=== PATIENT | female | born 1975 | race Caucasian/White ===

== ENCOUNTER 2019-05-01 01:54 | Emergency (ER) | payer SELFPAY ==
[2019-05-01 01:58] VITALS: BP 121/85; PULSE 110; RESP 18; TEMP 36.8; O2SAT 100
--- NOTE | 2019-05-01 03:26 | ED.GENADULT ---
HPI - General Adult General Chief complaint: Wound/Laceration Stated complaint: toe wound? Time Seen by Provider: 05/01/19 03:02 Source: patient Mode of arrival: ambulatory Limitations: no limitations History of Present Illness HPI narrative: Patient presented for evaluation of left fourth toe wound that has been present over the past week. Patient denies stepping on any foreign body or injury to the foot. She states that she noticed some burning in that location, and then noticed a sore which has now developed. No purulent drainage. She is noticed some dry skin around the area. No erythema or warmth. Patient denies any fever or chills. No trauma to the foot. She is up-to-date on her immunizations. She reports dull, aching pain that is worsened with walking. No ankle pain. She denies any numbness. She has no history of diabetes or skin infection. Related Data Allergies Allergy/AdvReac Type Severity Reaction Status Date / Time No Known Allergies Allergy Unverified 08/14/18 13:53 Review of Systems Review of Systems: Narrative: CONSTITUTIONAL: Denies fever, chills, or sweats. CARDIOVASCULAR: Denies chest pain RESPIRATORY: Denies cough or dyspnea. GASTROINTESTINAL: Denies nausea or vomiting SKIN: Denies rash or itching. MUSCULOSKELETAL: Denies joint pain PMFSH Social History Social History (Updated 05/01/19 @ 03:41 by Jeannine Pappas MD) Smoking status: Current every day smoker Tobacco type: cigarettes Second hand tobacco smoke exposure: No Alcohol intake: current Substance use: never Exam Narrative: Exam Narrative: GENERAL: Well-appearing, well-nourished, and in no acute distress. HEAD: Normocephalic, atraumatic. EYES: PERRLA and EOMI. ENT: Nares clear, no rhinorrhea or epistaxis. Mucous membranes moist. NECK: Supple. CHEST: Clear to auscultation. No respiratory distress. HEART: Regular rate and rhythm. No murmur heard. Normal peripheral pulses. ABDOMEN: Soft, nontender, nondistended, normal active bowel sounds. EXTREMITIES: Normal range of motion. No edema. SKIN: Warm, dry, no laceration. Left fourth toe skin breakdown, no erythema, no purulent discharge, there is tenderness present. No warmth. No blister or abscess. No necrosis. DP pulses 2+. Intact sensation distally. NEURO: No focal deficits. Alert and oriented x3 Course Course Emergency Course: Patient with evidence of dry skin and no purulent discharge, but possible very early cellulitis. Patient will require some debridement of the skin breakdown. This does not need to be done emergently. No sign of tracking, no crepitus, no forefoot pain or ankle pain. No sign of tracking, not consistent with osteomyelitis. No systemic symptoms. We will set patient up with podiatry, and she will be started on antibiotics. Advised had a dressing keep the wound clean and dry. Patient given shoe to walk-in for comfort, discharged home in stable condition. Vital Signs Vital signs: Vital Signs Temperature 36.8 C 05/01/19 01:58 Pulse Rate 110 H 05/01/19 01:58 Respiratory Rate 18 05/01/19 01:58 Blood Pressure 121/85 05/01/19 01:58 Pulse Oximetry 100 05/01/19 01:58 Temperature 36.8 C 05/01/19 01:58 Pulse Rate 110 H 05/01/19 01:58 Respiratory Rate 18 05/01/19 01:58 Blood Pressure 121/85 05/01/19 01:58 Pulse Oximetry 100 05/01/19 01:58 Medical Decision Making Vital Signs Vital Signs: Vital Signs Temperature 36.8 C 05/01/19 01:58 Pulse Rate 110 H 05/01/19 01:58 Respiratory Rate 18 05/01/19 01:58 Blood Pressure 121/85 05/01/19 01:58 Pulse Oximetry 100 05/01/19 01:58 Temperature 36.8 C 05/01/19 01:58 Pulse Rate 110 H 05/01/19 01:58 Respiratory Rate 18 05/01/19 01:58 Blood Pressure 121/85 05/01/19 01:58 Pulse Oximetry 100 05/01/19 01:58 Discharge Plan Discharge Clinical Impression: Open toe wound Qualifiers: Encounter type: initial encounter Qualified Code(s): S91.10
== END 2019-05-01 04:25 | disposition home or self-care (01) ==
PROVIDERS: Emergency Provider Emergency Medicine
DX: S91.105A Unspecified open wound of left lesser toe(s) without damage to nail, initial encounter (principal); F17.210 Nicotine dependence, cigarettes, uncomplicated; X58.XXXA Exposure to other specified factors, initial encounter
CPT/HCPCS: 99283

== ENCOUNTER 2020-12-29 03:05 | Emergency (ER) | payer OTHER, SELFPAY ==
--- NOTE | ~2020-12-29 | US_ITS ---
US abdomen limited DATE: 12/29/2020 07:46 INDICATION: Abdominal pain TECHNIQUE: Real-time imaging of liver, pancreas, gallbladder areas COMPARISON: 01/08/2021 CT abdomen pelvis noncontrast examination FINDINGS: Normal hepatopedal portal venous flow direction. No hepatic or pancreatic space-occupying m ass lesion. Approximately 1.4 cm stone is noted in the gallbladder fundus. There is mild thickening of the gallbl adder wall. Negative sonographic Sage's sign. Common bile duct measures 4.1 mm, within normal limits. IMPRESSION: Cholelithiasis and mild gallbladder wall thickening; negative sonographic Sage's sign Reviewed, dictated and finalized at [facility]. Reviewed, dictated and finalized at [facility]. IMPRESSION: Cholelithiasis and mild gallbladder wall thickening; negative sonog raphic Sage's sign
--- NOTE | ~2020-12-29 | CT_ITS ---
EXAMINATION: CT abdomen pelvis wo con DATE: 12/29/2020 05:32 INDICATION: Right-sided abdominal and flank pain. History of urinary tract infections. TECHNIQUE: Computed tomography (CT) of the abdomen and pelvis was performed without intravenous contr ast. Automated exposure control and iterative reconstruction technique were employed. Exam dose: 567 .59 mGy-cm total exam DLP. COMPARISON: None. FINDINGS: There is mild atelectasis in the lower aspect of the middle lobe and right lower lobe. Left lower lung taylor are clear. Normal heart size. No pericardial or pleural effusion. There is at least one 12 mm gallstone in the gallbladder fundus, possibly in a phrygian cap. Gallbladder wall thickening is suggested. No hepatic space-occupying mass lesion or bile duct or pancreatic duct dilatation is detected. No de creatic mass lesion or calcification. Normal splenic size. Normal morphology of the adrenal glands. Suggestion of a pinpoint nonobstructing left renal calculus. No renal mass lesion or urinary tract ca lculus or hydroureteronephrosis is evident otherwise on this limited noncontrast examination. The uri nary bladder is largely evacuated and not optimally evaluated. Uterus and adnexal areas are unremarka ble. No abdominal aortic aneurysm. No intraperitoneal or retroperitoneal or pelvic mass lesion or adenopat hy or ascites. Normal appendix. No bowel obstruction, bowel wall thickening, pneumatosis or intraperitoneal free air . Small fat-containing umbilical hernia. Degenerative changes of the thoracic and lumbar spine including severe degenerative disc disease at L 4-5. No suspicious osteolytic or osteoblastic lesions are noted. IMPRESSION: Cholelithiasis; borderline gallbladder wall thickening Normal appendix possible pinpoint nonobstructing left renal calculus Mild atelectasis in the right lo wer lung Reviewed, dictated and finalized at [facility]. Reviewed, dictated and finalized at [facility]. IMPRESSION: Cholelithiasis; borderline gallbladder wall thickening Normal appendix possible pinpoint nonobstructing left renal calculus Mild atele ctasis in the right lower lung
[2020-12-29 03:12] VITALS: PULSE 85; RESP 18; TEMP 36.1; O2SAT 100
[2020-12-29] MEDS: ONDANSETRON INJ 4 MG/2 ML VIAL IV PUSH (03:42)
[2020-12-29] MEDS: SODIUM CHLORIDE 0.9% IV 1,000 ML 999 ML IV CONT (03:42)
[2020-12-29] MEDS: MORPHINE SULFATE (*CRX) 4 MG/ML INJ IV PUSH ×2 (03:43→07:08)
--- NOTE | 2020-12-29 04:02 | ED.GENADULT ---
HPI - General Adult General Chief complaint: Abdominal Pain <Hong Singh MD - Last Filed: 12/29/20 04:03> Stated complaint: abd pain <Hong Singh MD - Last Filed: 12/29/20 04:03> Time Seen by Provider: 12/29/20 03:26 <Hong Singh MD - Last Filed: 12/29/20 04:03> History of Present Illness HPI narrative: Patient is a 45-year-old female presents the emergency department with chief complaint of left flank pain. Patient states the pain began suddenly reports that by nothing is worsened with movement. Patient denies fever denies chills reports has had history of UTIs. Patient denies history of kidney stones. <Hong Singh MD - Last Filed: 12/29/20 04:03> Related Data Allergies/adverse reactions: Allergies Allergy/AdvReac Type Severity Reaction Status Date / Time No Known Allergies Allergy Verified 12/29/20 03:20 <Hong Singh MD - Last Filed: 12/29/20 04:03> Review of Systems Review of Systems: A 10 system review of systems was completed on the patient and is negative except for what is stated in the HPI. Nursing and ancillary documentation was reviewed. <Hong Singh MD - Last Filed: 12/29/20 04:03> PMFSH Social History Social History: Social History Smoking status: Current every day smoker Tobacco type: cigarettes Second hand tobacco smoke exposure: No Alcohol intake: current Substance use: never <Hong Singh MD - Last Filed: 12/29/20 04:03> Exam Narrative: GENERAL: Well-appearing, well-nourished, and in moderate pain distress. HEAD: Normocephalic, atraumatic. EYES: PERRLA and EOMI. ENT: Nares clear, no rhinorrhea or epistaxis. Mucous membranes moist. NECK: Supple. CHEST: Clear to auscultation. No respiratory distress. HEART: Regular rate and rhythm. No murmur heard. Normal peripheral pulses. ABDOMEN: Soft, nontender, nondistended, normal active bowel sounds. EXTREMITIES: Normal range of motion. No edema. SKIN: Warm, dry, no rash. NEURO: No focal deficits. Alert and oriented x3. PSYCH: Normal mood and affect. <Hong Singh MD - Last Filed: 12/29/20 04:03> Course Vital Signs Vital signs: Vital Signs Temperature 36.1 C L 12/29/20 03:12 Pulse Rate 85 12/29/20 03:12 Respiratory Rate 18 12/29/20 03:12 Pulse Oximetry 100 12/29/20 03:12 Temperature 36.1 C L 12/29/20 03:12 Pulse Rate 80 12/29/20 09:00 Respiratory Rate 16 12/29/20 09:00 Blood Pressure 101/72 12/29/20 09:00 Pulse Oximetry 98 12/29/20 09:00 <Hong Singh MD - Last Filed: 12/29/20 04:03> Vital Signs Temperature 36.1 C L 12/29/20 03:12 Pulse Rate 85 12/29/20 03:12 Respiratory Rate 18 12/29/20 03:12 Pulse Oximetry 100 12/29/20 03:12 Temperature 36.1 C L 12/29/20 03:12 Pulse Rate 80 12/29/20 09:00 Respiratory Rate 16 12/29/20 09:00 Blood Pressure 101/72 12/29/20 09:00 Pulse Oximetry 98 12/29/20 09:00 <José Haywood MD - Last Filed: 12/29/20 10:01> Medical Decision Making MDM Narrative Medical decision making narrative: Labs reviewed CT reviewed Ultrasound reviewed once it was resulted Patient was reexamined Effectively she has no right upper quadrant tenderness at all She does have some lumbar midline and paraspinous tenderness on the left side, and her symptoms are worse when she moves around or coughs She has a negative straight leg raise Advised her about the presence of a gallstone but I don't think that the cause of any of her symptoms, and that we'll treat her with some anti-inflammatories and muscle relaxers <José Haywood MD - Last Filed: 12/29/20 10:01> Vital Signs Vital Signs: Vital Signs Temperature 36.1 C L 12/29/20 03:12 Pulse Rate 85 12/29/20 03:12 Respiratory Rate 18 12/29/20 03:12 Pulse O
[2020-12-29 04:10] LABS: Basophils Absolute Auto 0.1 K/mm3 (0.0-0.1); Basophils Percent Auto 0.6 % (0.2-1.2); Eosinophils Absolute Auto 0.3 K/mm3 (0-0.3); Eosinophils Percent Auto 3.4 % (0-4.4); Hematocrit 37.2 % (37.0-47.0); Hemoglobin 12.3 g/dL (12.0-15.0); Immature Granulocyte Absolute 0.01 K/mm3 (0.00-0.031); Immature Granulocyte Percent A 0.1 % (0-0.5); Lymphocytes Absolute Auto 3.23 K/mm3 (0.9-3.2); Lymphocytes Percent Auto 40.3 % (18.3-44.2); Mean Corpuscular HGB Conc 33.1 g/dl (32-36); Mean Corpuscular Hemoglobin 32.4 pg (26-34); Mean Corpuscular Volume 97.9 fl (80-100); Mean Platelet Volume 9.8 fl (7.4-10.4); Monocytes Absolute Auto 0.5 K/mm3 (0.1-0.6); Monocytes Percent Auto 5.6 % (2.6-8.5); Platelet Count Result 314 k/mm3 (150-375); Red Cell Distribution Width 13.8 % (11.5-14.5)
[2020-12-29 04:22] LABS: Alanine Aminotransferase 18 U/L (4-35); Albumin Level 4.1 g/dL (3.5-5.1); Alkaline Phosphatase 60 U/L (38-126); Anion Gap 8 mmol/L (8-16); Aspartate Amino Transferase 27 U/L (14-36); Bilirubin,Total 0.1 mg/dL (0.2-1.3); Blood Urea Nitrogen 14 mg/dL (7-17); Calcium 9.5 mg/dL (8.4-10.2); Carbon Dioxide 26 mmol/L (22-30); Chloride 107 mmol/L (98-107); Estimated CRCL calculation 90 ml/min; Estimated Glomerular Filt Rate > 60; Glucose 120 mg/dL (65-110); Lipase 161 U/L (23-300); Potassium 3.3 mmol/L (3.4-5.0); Sodium 141 mmol/L (137-145)
[2020-12-29 05:31] VITALS: BP 105/73; PULSE 79; RESP 18; O2SAT 100
[2020-12-29 05:42] LABS: Add Urine Microscopic? YES; Appearance Urine Clear (Clear); Bilirubin Urine Negative (Negative); Blood Urine Negative (Negative); Color Urine Yellow (Yellow); Glucose Urine UA Negative (Negative); Ketones Urine Negative (Negative); Leukocyte Esterase Ur Negative LEU/UL (Negative); Mucus Urine Few /lpf; Nitrate Urine Negative (Negative); Protein Urine 1+ mg/dL (Negative); Squamous Epithelial Cell Urine Few /hpf (Few); WBC Urine 0-3 /hpf
[2020-12-29 05:43] LABS: Specific Grav Ur 1.031 (1.001-1.035)
[2020-12-29 08:30] VITALS: BP 91/66; PULSE 85; RESP 17; O2SAT 99
[2020-12-29 09:00] VITALS: BP 101/72; PULSE 80; RESP 16; O2SAT 98
[2020-12-29] MEDS: KETOROLAC 30 MG/ML VIAL (*BKC) IV PUSH (10:12)
[2020-12-29 10:42] VITALS: BP 98/71; PULSE 73; RESP 15; O2SAT 100
== END 2020-12-29 10:39 | disposition home or self-care (01) ==
PROVIDERS: Emergency Provider Emergency Medicine
DX: K80.80 Other cholelithiasis without obstruction (principal); F17.200 Nicotine dependence, unspecified, uncomplicated
CPT/HCPCS: 36415; 74176; 76705; 80053; 81001; 81025; 83690; 85025; 96361; 96374; 96375; 96376; 99284; J1885; J2270; J2405; J7030

== ENCOUNTER 2022-08-30 22:21 | Emergency (ER) | payer OTHER, SELFPAY ==
[2022-08-30 22:24] VITALS: BP 124/76; PULSE 100; RESP 14; TEMP 36.7; O2SAT 99
--- NOTE | 2022-08-31 01:00 | PC.NURSE ---
Addendum entered by Lisa Howard RN 08/31/22 01:57: pt denies difficulty breathing or swallowing. Pt was able to talk in clear and concise sentences. Original Note: Pt to ED with c/o of rash noted on different areas of her body. Pt states the areas do itch but are not currently having any drainage. Pt states has had poison felicity mutliple times and believes this is another flare up. Pt states she has not taken anything for the itching.
--- NOTE | 2022-08-31 02:00 | ED.SKABFB ---
HPI - Skin/Abscess/Foreign Bdy General Chief complaint: Skin/Abscess/Foreign Body Stated complaint: rash Time Seen by Provider: 08/31/22 01:27 Source: patient Mode of arrival: ambulatory Limitations: no limitations History of Present Illness HPI narrative: Patient is a 46 y/o female who presents to the ED with c/o poison felicity infection. Patient reports she was working on a yard 3 days ago and someone used a chainsaw to cut down an area of poison felicity. She has since developed poison felicity rash to her neck, face, ears, upper chest, left arm, left leg. Patient has been using an over the counter drying solution without improvement. She has not taken anything for the itching. She states she feels like her face is swollen. Denies vision changes, difficulty breathing or swallowing, fevers. Related Data Allergies Allergy/AdvReac Type Severity Reaction Status Date / Time No Known Allergies Allergy Verified 08/31/22 01:24 Review of Systems Review of Systems: CONSTITUTIONAL: Denies fever, chills, or sweats. EYES: Denies visual changes. ENT: See HPI. CARDIOVASCULAR: Denies chest pain. RESPIRATORY: Denies dyspnea. GASTROINTESTINAL: Denies nausea, vomiting. SKIN: See HPI. NEUROLOGIC: Denies headache, numbness, or weakness. All systems reviewed & are unremarkable except as noted in HPI and below PMFSH Social History Social History Smoking status: Current every day smoker Tobacco type: cigarettes Second hand tobacco smoke exposure: No Alcohol intake: current Substance use: never Exam Narrative: GENERAL: Uncomfortable appearing, well-nourished, non-toxic, in no acute distress. HEAD: Normocephalic, atraumatic. EENT: Eyes PERRLA/EOMI, conjunctiva clear. Diffuse inflammation and mild swelling noted to face. Scattered areas of vesicles and crusted lesions to chin, bilateral outer ears (R>L), R facial cheek. NECK: Supple. No adenopathy, no masses. RESPIRATORY: Airway patent, respirations nonlabored. Clear to auscultation bilaterally, no rales, rhonchi, wheezing. CARDIOVASCULAR: Regular rate and rhythm without murmurs, rubs, or gallops. Radial pulses 2+ and equal bilaterally. MUSCULOSKELETAL: Moves all extremities. Strength/ROM intact without gross deformities. SKIN: Warm, dry, normal color. No rashes. Scattered areas of linear groups of vesicles and lesions in various stages of healing, consistent with poison felicity dermatitis to L antecubital region, R forearm, L lower leg, upper chest, neck. NEURO: A&O X3. Speech clear. Cranial nerves II-XII grossly intact. Steady gait. No ataxic movements. PSYCHIATRIC: Appropriate mood and affect. Normal interaction. Course Vital Signs Vital signs: Vital Signs Temperature 98.0 F 08/30/22 22:24 Pulse Rate 100 08/30/22 22:24 Respiratory Rate 14 08/30/22 22:24 Blood Pressure 124/76 08/30/22 22:24 Pulse Oximetry 99 08/30/22 22:24 Oxygen Delivery Room Air 08/30/22 22:24 Temperature 98.0 F 08/30/22 22:24 Pulse Rate 100 08/30/22 22:24 Respiratory Rate 14 08/30/22 22:24 Blood Pressure 124/76 08/30/22 22:24 Pulse Oximetry 99 08/30/22 22:24 Oxygen Delivery Room Air 08/30/22 22:24 MDM - Skin/Abscess/Foreign Bdy MDM Narrative Medical decision making narrative: Patient presented to ED with 3-day history of fairly extensive poison felicity infection, lesions/vesicles to the face, neck, chest, extremities. Vital stable. Afebrile. No signs of secondary bacterial infection on exam at this time. No signs of airway compromise despite facial involvement. Patient given dose of steroids, Benadryl, Tylenol here. Will discharge on Medrol Dosepak. Discussed [id number] topical agents/symptomatic management. Given return precautions. D/C in stable condition. Medical Records Attestation: I reviewed the patient's medical records. Discharge Plan Discharge Clinical Impression: Poison felicity dermatitis
[2022-08-31] MEDS: ACETAMINOPHEN 500 MG TABLET 1000 MG PO (02:27)
[2022-08-31] MEDS: diphenhydrAMINE HCl CAP 25 MG CAPSULE 50 MG PO (02:27)
[2022-08-31] MEDS: methylPREDNISolone SOD SUCC 125 MG VIAL IM (02:27)
[2022-08-31 02:35] VITALS: BP 123/84; PULSE 88; RESP 16; O2SAT 100
== END 2022-08-31 02:36 | disposition home or self-care (01) ==
PROVIDERS: Emergency Provider Physician Assistant
DX: L23.7 Allergic contact dermatitis due to plants, except food (principal); F17.210 Nicotine dependence, cigarettes, uncomplicated
CPT/HCPCS: 96372; 99283; A9270; J2930

== ENCOUNTER 2025-01-19 14:23 | Outpatient (CLI) | payer OTHER, SELFPAY ==
--- NOTE | ~2025-01-19 | US_ITS ---
US right upper quadrant Indication: Abd pain Comparison: None Technique: Berkowitz-scale and color Doppler images were obtained. Findings: LIVER: The liver contours appears slightly nodular. . GALLBLADDER/BILIARY: There is cholelithiasis with wall thickening measuring 6 mm although there is no pericholecystic fluid. CBD 3 mm. Vernon sign negative. PANCREAS: Pancreas limited by bowel gas. Right Kidney: Right kidney was not imaged. Impression: Cholelithiasis with findings concerning for early cholecystitis. Probable cirrhotic disease of the liver Reviewed, dictated and finalized at [facility]. Impression: Cholelithiasis with findings concerning for early cholecystitis. Probable cirrh otic disease of the liver
--- OUTSIDE RECORDS SUMMARY | 2025-01-19 14:56 | XMS_ITS | Clinical Summary ---
Author Organization [facility] [address] Address [address] [place] [id number] Care Team Providers Care Senior Qualitative Researcher Name Role Phone Unknown, Notinfile Primary Care Provider Unavail able Allergies No known active allergies Medications ondansetron (ZOFRAN) 4 mg tablet Take 1 tablet (4 mg total) by mouth every 6 (six) hours 12 tablet Active Additional Information Patient not taking.Reported on 12/29/2023 Active Problems Problem Noted Date Diagnosed Date Left lower quadrant pain 12/29/2023 Surgical History Surgery Date Site/Laterality Comments SECTION CERVICAL BIOPSY W/ LOOP ELECTRODE EXCISION Social History Tobacco Use Types Packs/Day Years Used Date Smoking Tobacco: Every Day Cigarettes Tobacco Cessation:Ready to Q uit: No Hunger Vital Sign Answer Date Recorded Within the past 12 months, y ou worried that your food would run out before you got the money to buy more. Sometimes true Within the past 12 months, t he food you bought just didn't last and you didn't have money to get more. Sometimes true 10/2023 Personal Safety Answer Date Recorded Have you ever been in or are you currently in a harmful physical or emotional relationship or is someone making you feel afraid or unsafe? Denies 11/27/2023 Comments No Sex and Gender Information Value Date Recorded Sex Assigned at Not on file Legal Sex Female 5:06 PM CDT Gender Identity Not on file Sexual Orientation Not on file Obstetrics History Last Filed Vital Signs Vital Sign Reading Time Taken Comments Blood Pressure 115/73 12/29/2023 1:09 PM CDT Pulse 92 12/29/2023 1:09 PM CDT Temperature 36.9 C (98.4 F) 12/29/2023 1:09 PM CDT Respiratory Rate 20 12/29/2023 1:09 PM CDT Oxygen Saturation 97% 12/29/2023 1:09 PM CDT Inhaled Oxygen Concentration - - Weight 82.8 kg (182 lb 9.6 oz) 12/29/2023 1:09 P M CDT Height 165.1 cm (5' 5) 12/29/2023 1:09 PM CDT Body Mass Index 30.39 12/29/2023 1:09 PM CDT Plan of Treatment Scheduled Procedures Name Priority Associated Diagnoses Date/Ti me COLONOSCOPY Open Access Left lower quadrant pain Health Maintenance Due Date Last Done Comments Breast Cancer Screening-Mammogram 1974 Cervical Cancer Screening 1974 Colon Cancer Screening-Colonoscopy 1974 Depression Screening 1974 Hepatitis C Screening 1974 DTaP/Tdap/Td Vaccine (1 - Tdap) 1985 Hepatitis B Screening 1992 Regular Well Visit/Exam 18-64 1992 Pneumococcal vaccine <65 (1 of 2 - PCV) 1993 Zoster Vaccine (1 of 2) 2024 Influenza Vaccine (#1) 2024 03/20/2016 Insurance [facility] Care Teams Senior Qualitative Researcher Relationship Specialty Start Date End Date Unknown, Notinfile PCP - General 09/28/21
--- OUTSIDE RECORDS SUMMARY | 2025-01-19 14:56 | XMS_ITS | Clinical Summary ---
Author Organization [facility] Address [address] [place] [address] Care Team Providers Care Biology Tutor Name Role Phone Bruce Eng Primary Care Provider + Source Comments [facility],non-owned Affiliates and Associated Physician Practices is amultiple site organization consisting of ambulatory clinics and hospital sitesin [place], [place]. This disclosure is being madepursuant to the Care Everywhere program and may not contain all information available regarding this patient. Last updated 17.[facility] Social History Tobacco Use Types Packs/Day Years Used Date Smoking Tobacco: Never Assessed Comments Unknown Sex and Gender Information Value Date Recorded Sex Assigned at Not on file Legal Sex Female 6:03 PM QUANTITATIVE RESEARCHER Gender Identity Not on file Sexual Orientation Not on file Plan of Treatment Health Maintenance Due Date Last Done Comments COLOGUARD (AGES 45-75) - COL ON CA SCREENING 1974 COLON MONITORING 1974 COLONOSCOPY - COLON CA SCREENING 1974 CT COLONOGRAPHY - COLON CA SCREENING 1974 Colorectal Cancer Screening 1974 FIT - COLON CA SCREENING 1974 FLEX SIG - COLON CA SCREENING 1974 LIPID TESTING 1974 MAMMOGRAM 1974 HIV SCREENING 1989 HEPATITIS C SCREENING 11/08/1992 DTAP/TDAP/TD VACCINES (1 - Tdap) 1993 HEPATITIS B VACCINE (1 of 3 - 19+ 3-dose series) 1993 DEPRESSION SCREENING 03/23/2024 PNEUMOCOCCAL VACCINE 50+ (1 of 1 - PCV) 2024 ZOSTER VACCINE (1 of 2) 2024 COVID-19 VACCINE (1 - 2023-2 5 season) 2024 INFLUENZA VACCINE (#1) 2024 HIB VACCINE Aged Out No longer eligi ble based on patient's age to complete this topic HPV VACCINE Aged Out No longer eligi ble based on patient's age to complete this topic MENINGOCOCCAL (Group B) VACC INE SHARED DECISION-MAKING Aged Out No longer eligibl e based on patient's age to complete this topic MENINGOCOCCAL GROUPS A/C/Y/W VACCINE Aged Out No longer eligible b ased on patient's age to complete this topic Care Teams Biology Tutor Relationship Specialty [place] [address] [place] [phone] PCP - General 03/01/15
== END 2025-01-19 14:24 | disposition home or self-care (01) ==
LOC: ANHIMG 14:23
DX: K80.20 Calculus of gallbladder without cholecystitis without obstruction (principal)
CPT/HCPCS: 76705